=== PATIENT | female | born 1985 | race Two or more races ===

== ENCOUNTER 2017-04-26 01:02 | Emergency (ER) | payer OTHER ==
[~2017-04-26] VITALS: Ht 170.2 cm; Wt 133.8 kg
[2017-04-26 05:30] VITALS: BP 125/70
== END 2017-04-26 05:26 | disposition home or self-care (01) ==
LOC: ER 01:10 → EDSEX 01:10 → ER 05:26
DX: J32.9 Chronic sinusitis, unspecified (principal); E11.9 Type 2 diabetes mellitus without complications; E78.5 Hyperlipidemia, unspecified
CPT/HCPCS: 81025

== ENCOUNTER 2017-07-15 11:26 | Emergency (ER) | payer MEDICAID ==
[~2017-07-15] VITALS: Ht 170.2 cm; Wt 149.3 kg
[2017-07-15 11:57] VITALS: BP 113/57
== END 2017-07-15 15:08 | disposition home or self-care (01) ==
LOC: ER 11:26
DX: G89.29 Other chronic pain (principal); M54.5 Low back pain; E11.9 Type 2 diabetes mellitus without complications; E78.5 Hyperlipidemia, unspecified; Z76.0 Encounter for issue of repeat prescription